=== PATIENT | female | born 1975 ===

== ENCOUNTER 2017-07-09 15:39 | Emergency (ER) | payer MEDICAID ==
[2017-07-09 15:40] VITALS: BMI 19.5
[2017-07-09 16:01] VITALS: O2SAT 98
[2017-07-09] MEDS ORDERED: DiphenhydrAMINE 50 mg/ml Inj IVP STA (16:33)
[2017-07-09] MEDS ORDERED: Sodium Chloride 0.9% 1,000 ML IV ONE (16:33)
[2017-07-09] MEDS ORDERED: DiphenhydrAMINE 50 mg/ml Inj ONE (16:44)
[2017-07-09] MEDS ORDERED: Sodium Chloride 0.9% 1,000 ML ONE (16:44)
[2017-07-09 16:53] LABS: BASO % 0.4 % (0.0-2.0); HEMATOCRIT 41.7 % (34.0-47.0); LYMPH # 1.7 K/uL (1.0-4.3); LYMPH % 14.7 % (20.0-40.0); MEAN CELL VOLUME 88.8 fL (81.0-99.0); MEAN CORPUSCULAR HEMOGLOBIN 29.4 pg (27.0-31.0); MEAN CORPUSCULAR HGB CONC 33.1 g/dL (33.0-37.0); MEAN PLATELET VOLUME 7.5 fL (7.2-11.7); MONO # 0.9 K/uL (0.0-0.8); MONO % 8.1 % (0.0-10.0); RED CELL DISTRIBUTION WIDTH 13.8 % (11.5-14.5); WHITE BLOOD COUNT 11.5 K/uL (4.8-10.8)
[2017-07-09 17:12] LABS: BILIRUBIN,TOTAL 1.3 mg/dL (0.2-1.3); CALCIUM 8.5 mg/dl (8.6-10.4); GFR AFRICAN-AMERICAN > 60; GLUCOSE,RANDOM 109 mg/dL (65-105); TOTAL PROTEIN 8.3 g/dL (6.3-8.3)
[2017-07-09 17:14] LABS: ALB/GLOB RATIO 1.1 (1.0-2.1); ALKALINE PHOSPHATASE 81 U/L (38-126); ALT/SGPT 26 U/L (9-52); AST/SGOT 29 U/L (14-36); BLOOD UREA NITROGEN 12 mg/dL (7-17); CARBON DIOXIDE 26 mmol/L (22-30); CHLORIDE 95 mmol/L (98-107); POTASSIUM 4.3 mmol/L (3.6-5.2); SODIUM 131 mmol/L (132-148)
--- NOTE | 2017-07-09 17:49 | C.PDOC ---
Time Seen by Provider: 07/09/17 16:25 Chief Complaint (Nursing): Abdominal Pain History Per: Patient Onset/Duration Of Symptoms: Days (4) Current Symptoms Are (Timing): Still Present Severity: Moderate Location Of Pain/Discomfort: Epigastric Radiation Of Pain To:: None Quality Of Discomfort: Unable To Describe, "Pain" Associated Symptoms: Nausea, Vomiting Exacerbating Factors: Food Alleviating Factors: None Additional History Per: Prior Records Past Medical History Reviewed: Historical Data, Nursing Documentation, Vital Signs Vital Signs: Last Vital Signs Temp 97.9 F 07/09/17 17:50 Pulse 64 07/09/17 17:50 Resp 18 07/09/17 17:50 BP 109/72 07/09/17 17:50 Pulse Ox 98 07/09/17 17:51 - Medical History PMH: Anxiety, Depression, Gastrointestinal Ulcer, Hypercholesterolemia, Migraine , Sleep Apnea Surgical History: Other Surgeries: Gastric bypass - [facility] Procedures BYPASS STOMACH TO JEJUNUM, PERCUTANEOUS ENDOSCOPIC APPROACH (04/28/15) DETOXIFICATION SERVICES FOR SUBSTANCE ABUSE TREATMENT (10/15/15) DILATION OF STOMACH, ENDO (06/23/15) DIVISION OF VAGUS NERVE, PERCUTANEOUS ENDOSCOPIC APPROACH (04/28/15) ESOPHAGOGASTRODUODENOSCOPY [EGD] W/CLOSED BIOPSY (02/12/15) EXCISION OF STOMACH, ENDO, DIAGN (07/19/15) IMMOBILIZ/WOUND ATTN NEC (02/17/15) INSERTION OF FEEDING DEVICE INTO JEJUNUM, PERC APPROACH (09/11/15) INSERTION OF INFUSION DEV INTO SUP VENA CAVA, PERC APPROACH (09/11/15) INSPECTION OF UPPER INTESTINAL TRACT, ENDO (02/05/16) INTRODUCTION OF NUTRITIONAL INTO CENTRAL VEIN, PERC APPROACH (09/11/15) MEDS [facility] FOR SUBSTANCE ABUSE TREATMENT, ANTABUSE (10/15/15) RELEASE LESSER OMENTUM, PERCUTANEOUS ENDOSCOPIC APPROACH (02/05/16) RELEASE SMALL INTESTINE, PERCUTANEOUS ENDOSCOPIC APPROACH (08/02/15) REMOVAL OF INTRALUMINAL DEVICE FROM ESOPHAGUS, ENDO (09/29/15) REPAIR ABDOMINAL WALL, PERCUTANEOUS ENDOSCOPIC APPROACH (02/05/16) REPAIR LEFT DIAPHRAGM, PERCUTANEOUS ENDOSCOPIC APPROACH (04/28/15) REPAIR RIGHT DIAPHRAGM, PERCUTANEOUS ENDOSCOPIC APPROACH (04/28/15) RESECTION OF GALLBLADDER, PERCUTANEOUS ENDOSCOPIC APPROACH (02/29/16) Family History: States: Unknown Family Hx - Social History Hx Tobacco Use: Yes (former smoker) Hx Alcohol Use: No Hx Substance Use: No - Immunization History Hx Tetanus Toxoid Vaccination: No Hx Influenza Vaccination: No Hx Pneumococcal Vaccination: No Review Of Systems Except As Marked, All Systems Reviewed And Found Negative. Constitutional: Negative for: Fever Cardiovascular: Negative for: Chest Pain Respiratory: Negative for: Shortness of Breath Gastrointestinal: Positive for: Nausea, Vomiting, Abdominal Pain. Negative for : Diarrhea, Melena, Hematochezia, Hematemesis Genitourinary: Negative for: Dysuria Musculoskeletal: Negative for: Neck Pain, Back Pain Skin: Negative for: Rash Neurological: Negative for: Weakness, Numbness, Headache Physical Exam - Physical Exam Appears: Non-toxic, No Acute Distress Skin: Normal Color, Warm, Dry, No Rash Head: Atraumatic, Normacephalic Eye(s): bilateral: Normal Inspection, PERRL, EOMI Oral Mucosa: Moist Neck: Normal ROM, Supple Cardiovascular: Rhythm Regular Respiratory: Normal Breath Sounds, No Accessory Muscle Use Gastrointestinal/Abdominal: Soft, Tenderness (epigastric), No Distention, No Guarding, No Rebound Back: No CVA Tenderness Extremity: Normal ROM Neurological/Psych: Oriented x3, Normal Motor, Normal Sensation ED Course And Treatment - Laboratory Results Result Diagrams: 07/09/17 16:47 07/09/17 16:47 Lab Interpretation: No Acute Changes O2 Sat by Pulse Oximetry: 98 Pulse Ox Interpretation: Normal Progress Note: Pt feels much better and wants to go home. Reassessment Condition: Improved Progress - Interventions Interventions:: Observation, Intravenous fluid - Medications Administered Intravenous: Antiemetic, Antihistamine (H-1), H-2 jeny - Data Reviewed Data Reviewed: Lab, Old records - Patient Status Patient status: Mostly improved - Continuity of Care Discussed patient case with:: Patient, ED Nurse - Patient Plan Patient Plan: Discharge, F/U with PCP Disposition Counseled Patient/Family Regarding: Studies Performed, Diagnosis, Need For Followup, Rx Given - Disposition Referrals: Darell Marti MD [Staff Provider] - Disposition: HOME/ ROUTINE Disposition Time: 18:02 Condition: IMPROVED Additional Instructions: Follow up with your doctor for further evaluation and treatment. Return to the ER if you develop fever, not tolerating fluids, bleeding, worsening of symptoms or if you have any other concerns. Prescriptions: Ondansetron [Zofran] 4 mg PO Q8H PRN #15 tab PRN Reason: Nausea/Vomiting Pantoprazole Sodium [Protonix] 40 mg PO DAILY #14 ect Instructions: Gastritis (ED) Forms: [employer] Connect (Slovenian) Print Language: TURKMEN - Clinical Impression Clinical Impression: Epigastric abdominal pain, Nausea & vomiting
[2017-07-09 17:52] VITALS: BP 109/72; PULSE 64; RESP 18; TEMP 97.9
== END 2017-07-09 18:30 | disposition home or self-care (01) ==
LOC: C.ER 15:39
DX: R11.2 Nausea with vomiting, unspecified (principal); R10.13 Epigastric pain
CPT/HCPCS: 80053; 83690; 85025; 96361; 96374; 96375; 99285; J1200; J2765; J7040

== ENCOUNTER 2017-07-10 21:40 | Inpatient (IN) | payer MEDICAID ==
[2017-07-10 21:40] VITALS: BMI 19.5
--- NOTE | 2017-07-10 22:07 | C.PDOC ---
History Of Present Illness Patient with a Hx of gastric bypass presents to the ER with a complaint of nausea, vomiting, and abdominal pain for the past 5 days. Patient has not been able to tolerate PO, she was seen in the ER yesterday where she had a negative work up and was discharged home on protonix and zofran but symptoms continue. Denies fever or chills. Time Seen by Provider: 07/10/17 22:06 Chief Complaint (Nursing): Abdominal Pain History Per: Patient History/Exam Limitations: no limitations Onset/Duration Of Symptoms: Days Current Symptoms Are (Timing): Still Present Severity: Moderate Pain Scale Rating Of: 4 Location Of Pain/Discomfort: Epigastric Radiation Of Pain To:: None Quality Of Discomfort: Unable To Describe Associated Symptoms: Nausea, Vomiting. denies: Fever, Chills Exacerbating Factors: None Alleviating Factors: None Recent travel outside of the [place]: No Additional History Per: Family Abnormal Vaginal Bleeding: No Past Medical History Reviewed: Historical Data, Nursing Documentation, Vital Signs Vital Signs: Last Vital Signs Temp 98.9 F 07/11/17 01:02 Pulse 63 07/11/17 01:02 Resp 16 07/11/17 01:02 BP 161/106 H 07/11/17 01:02 Pulse Ox 100 07/11/17 01:02 - Medical History PMH: Anxiety, Depression, Gastrointestinal Ulcer, Hypercholesterolemia, Migraine , Sleep Apnea Surgical History: - [facility] Procedures BYPASS STOMACH TO JEJUNUM, PERCUTANEOUS ENDOSCOPIC APPROACH (04/28/15) DETOXIFICATION SERVICES FOR SUBSTANCE ABUSE TREATMENT (10/15/15) DILATION OF STOMACH, ENDO (06/23/15) DIVISION OF VAGUS NERVE, PERCUTANEOUS ENDOSCOPIC APPROACH (04/28/15) ESOPHAGOGASTRODUODENOSCOPY [EGD] W/CLOSED BIOPSY (02/12/15) EXCISION OF STOMACH, ENDO, DIAGN (07/19/15) IMMOBILIZ/WOUND ATTN NEC (02/17/15) INSERTION OF FEEDING DEVICE INTO JEJUNUM, PERC APPROACH (09/11/15) INSERTION OF INFUSION DEV INTO SUP VENA CAVA, PERC APPROACH (09/11/15) INSPECTION OF UPPER INTESTINAL TRACT, ENDO (02/05/16) INTRODUCTION OF NUTRITIONAL INTO CENTRAL VEIN, PERC APPROACH (09/11/15) MEDS [facility] FOR SUBSTANCE ABUSE TREATMENT, ANTABUSE (10/15/15) RELEASE LESSER OMENTUM, PERCUTANEOUS ENDOSCOPIC APPROACH (02/05/16) RELEASE SMALL INTESTINE, PERCUTANEOUS ENDOSCOPIC APPROACH (08/02/15) REMOVAL OF INTRALUMINAL DEVICE FROM ESOPHAGUS, ENDO (09/29/15) REPAIR ABDOMINAL WALL, PERCUTANEOUS ENDOSCOPIC APPROACH (02/05/16) REPAIR LEFT DIAPHRAGM, PERCUTANEOUS ENDOSCOPIC APPROACH (04/28/15) REPAIR RIGHT DIAPHRAGM, PERCUTANEOUS ENDOSCOPIC APPROACH (04/28/15) RESECTION OF GALLBLADDER, PERCUTANEOUS ENDOSCOPIC APPROACH (02/29/16) Family History: States: No Known Family Hx - Social History Hx Tobacco Use: Yes (former smoker) Hx Alcohol Use: No Hx Substance Use: No - Immunization History Hx Tetanus Toxoid Vaccination: No Hx Influenza Vaccination: No Hx Pneumococcal Vaccination: No Review Of Systems Constitutional: Negative for: Fever, Chills ENT: Negative for: Throat Pain Cardiovascular: Negative for: Chest Pain Respiratory: Negative for: Shortness of Breath Gastrointestinal: Positive for: Nausea, Vomiting, Abdominal Pain Genitourinary: Negative for: Dysuria Musculoskeletal: Negative for: Back Pain Skin: Negative for: Rash Neurological: Negative for: Weakness Psych: Negative for: Anxiety Physical Exam - Physical Exam Appears: Non-toxic Skin: Warm, Dry Head: Normacephalic Eye(s): bilateral: Normal Inspection Oral Mucosa: Dry Neck: Supple Chest: Symmetrical, No Tenderness Cardiovascular: Rhythm Regular Respiratory: No Rales, No Rhonchi, No Wheezing Gastrointestinal/Abdominal: Soft, Tenderness (Mid epigastric), No Guarding, No Rebound Back: Normal Inspection Extremity: Normal ROM Extremity: Bilateral: Atraumatic, Normal Color And Temperature Pulses: Left Dorsalis Pedis: Normal, Right Dorsalis Pedis: Normal Neurological/Psych: Oriented x3, Normal Speech, Normal Cognition Gait: Steady ED Course And Treatment - Laboratory Results Result Diagrams: 07/10/17 22:16 07/10/17 22:16 O2 Sat by Pulse Oximetry: 100 (Room air) Pulse Ox Interpretation: Normal Progress Note: CT abd/pel, blood work, and urinalysis ordered. IV fluids, pepcid , and zofran administered. Disposition Discussed With : Darell Marti Comment: accepted the pt on his service and took over the care at 1:14 AM Counseled Patient/Family Regarding: Studies Performed, Diagnosis - Disposition Disposition: HOSPITALIZED Disposition Time: 22:07 Condition: GUARDED Forms: [employer] (German) - Clinical Impression Clinical Impression: Nausea, Vomiting, Abdominal pain - Scribe Statement The provider has reviewed the documentation as recorded by the Scribe Jayden Robles All medical record entries made by the Scribe were at my direction and personally dictated by me. I have reviewed the chart and agree that the record accurately reflects my personal performance of the history, physical exam, medical decision making, and the department course for this patient. I have also personally directed, reviewed, and agree with the discharge instructions and disposition. Decision To Admit - Pt Status Changed To: Hospital Disposition Of: Inpatient - Admit Certification Admit to Inpatient:: After my assessment, the patient will require hospitalization for at least two midnights. This is because of the severity of symptoms shown, intensity of services needed, and/or the medical risk in this patient being treated as an outpatient. - InPatient: Physician Admission Certification:: After my assessment, the patient will require hospitalization for at least two midnights. This is because of the severity of symptoms shown, intensity of services needed, and/or the medical risk in this patient being treated as an outpatient. - . Bed Request Type: Regular Admitting Physician: Darell Marti Patient Diagnosis: Nausea, Vomiting, Abdominal pain
[2017-07-10] MEDS ORDERED: Lactated Ringer's 1,000 ML IV ONE (22:08)
[2017-07-10] MEDS ORDERED: Lactated Ringer's 1,000 ML ONE (22:18)
[2017-07-10 22:19] LABS: BASO % 0.2 % (0.0-2.0); HEMOGLOBIN 15.2 g/dL (11.0-16.0); LYMPH # 0.7 K/uL (1.0-4.3); LYMPH % 9.4 % (20.0-40.0); MEAN CELL VOLUME 88.8 fL (81.0-99.0); MEAN CORPUSCULAR HEMOGLOBIN 30.7 pg (27.0-31.0); MEAN CORPUSCULAR HGB CONC 34.5 g/dL (33.0-37.0); MEAN PLATELET VOLUME 7.5 fL (7.2-11.7); MONO # 0.2 K/uL (0.0-0.8); MONO % 2.2 % (0.0-10.0); NEUT % 88.2 % (50.0-75.0); PLATELET COUNT 369 K/uL (130-400); RBC 4.96 Mil/uL (3.80-5.20); RED CELL DISTRIBUTION WIDTH 13.9 % (11.5-14.5); WHITE BLOOD COUNT 7.9 K/uL (4.8-10.8)
[2017-07-10] MEDS ORDERED: DiphenhydrAMINE 50 mg/ml Inj IVP STA (22:35)
[2017-07-10 22:38] LABS: HCG,QUALITATIVE URINE NEGATIVE (NEGATIVE); SQUAMOUS EPITHIAL 36 /hpf (0-5); URINE BACTERIA OCC (<OCC); URINE BILIRUBIN NEGATIVE (NEGATIVE); URINE BLOOD NEGATIVE (NEGATIVE); URINE CLARITY Hazy (Clear); URINE COLOR Yellow (YELLOW); URINE GLUCOSE (UA) 1+ mg/dL (Normal); URINE LEUKOCYTE ESTERASE NEG Leu/uL (Negative); URINE NITRATE NEGATIVE (NEGATIVE); URINE PROTEIN 1+ mg/dL (NEGATIVE)
[2017-07-10] MEDS ORDERED: DiphenhydrAMINE 50 mg/ml Inj ONE (22:39)
[2017-07-10 22:42] LABS: ALBUMIN 4.7 g/dL (3.5-5.0); ALT/SGPT 21 U/L (9-52); AST/SGOT 25 U/L (14-36); BLOOD UREA NITROGEN 11 mg/dL (7-17); CALCIUM 8.7 mg/dl (8.6-10.4); GFR AFRICAN-AMERICAN > 60; GFR NON-AFRICAN AMERICAN > 60; LIPASE 36 U/L (23-300)
[2017-07-10 22:54] LABS: LYMPHOCYTE 9 % (20-40); MONOCYTE 1 % (0-10); NEUTROPHIL 89 % (50-75); PLATELET ESTIMATE NORMAL (NORMAL); REACTIVE LYMPHOCYTES 1 % (0-0); TOTAL CELLS COUNTED 100
[2017-07-10] MEDS ORDERED: Iodixanol 320 MG/ML 100 ML BOTTLE IV ONE (23:05)
[2017-07-11] MEDS ORDERED: Dextrose 5%/0.45% NS 1,000 ML IV ONE (01:37)
[2017-07-11] MEDS: Dextrose 5%/0.45% NS 1,000 ML IV SCH ×3 (01:37→22:41)
[2017-07-11 01:49] LABS: BARBITURATES, UR NEGATIVE (NEGATIVE); BENZODIAZEPINES, UR NEGATIVE (NEGATIVE); OPIATES, UR NEGATIVE (NEGATIVE); PHENCYCLIDINE, UR NEGATIVE (NEGATIVE)
[2017-07-11 08:03] LABS: AMYLASE 53 U/L (30-110); LIPASE 24 U/L (23-300)
--- NOTE | 2017-07-11 10:46 | CT ---
PROCEDURE: CT Abdomen and Pelvis with contrast HISTORY: abd pain, n/v COMPARISON: None. TECHNIQUE: Contrast dose: Visipaque 320, 100 cc. Radiation dose: Total exam DLP = 479.60 mGy-cm. This CT exam was performed using one or more of the following dose reduction techniques: Automated exposure control, adjustment of the mA and/or kV according to patient size, and/or use of iterative reconstruction technique. FINDINGS: LOWER THORAX: Unremarkable. LIVER: Unremarkable. No gross lesion or ductal dilatation. GALLBLADDER AND BILE DUCTS: Prior cholecystectomy noted. Common bile duct appears normal caliber nevertheless. No prominent intrahepatic biliary duct dilatation. PANCREAS: Unremarkable. No gross lesion or ductal dilatation. SPLEEN: Unremarkable. ADRENALS: Unremarkable. No mass. KIDNEYS AND URETERS: Unremarkable. No hydronephrosis. No solid mass. VASCULATURE: Unremarkable. No aortic aneurysm. BOWEL: Bowel does not appear obstructed. Evaluation the stomach reveals postoperative changes most compatible with prior gastric bypass surgery once again, as well as findings in the inferior left-sided small-bowel. Mural thickening of the stomach appears to have resolved in the interval. This APPENDIX: Normal appendix. PERITONEUM: Unremarkable. No free fluid. No free air. LYMPH NODES: Unremarkable. No enlarged lymph nodes. BLADDER: Unremarkable. REPRODUCTIVE: 2.4 cm right adnexal cyst identified in the interval. BONES: No acute fracture. OTHER FINDINGS: None. IMPRESSION: 1. Postoperative changes compatible with prior gastric bypass surgery as well as cholecystectomy. No definite acute abdominal findings. 2. Prior cholecystectomy. 3. 2.4 cm right adnexal cyst.
--- NOTE | 2017-07-11 15:04 | CP.PCM.PN ---
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 PT IS NO LONGER IN PAIN OR HAS NAUSEA. ABD CT REVIEWED. PENDING GI CONSULT STILL; RN INSTRUCTED TO CALL AGAIN. PT TO BE STARTED ON CLEAR LIQUIDS TONIGHT FOR DINNER. IF PT DOES NOT TOLERATE, RN TO NOTIFY ATTENDING AND PLACE ON NPO STATUS AGAIN. NO FURTHER ORDERS. Objective - Vital Signs/Intake and Output Vital Signs (last 24 hours): Temp Pulse Resp BP Pulse Ox 97.8 F 57 L 18 97/59 L 98 07/11/17 07:30 07/11/17 07:30 07/11/17 07:30 07/11/17 10:00 07/11/17 07:30 Intake and Output: 07/11/17 07/11/17 06:59 18:59 Intake Total 620 Balance 620 - Medications Medications: Current Medications Famotidine (Pepcid) 20 mg IVP Q12 [facility] Last Admin: 07/11/17 10:10 Dose: 20 mg Heparin Sodium (Porcine) (Heparin) 5,000 units SC Q8 [facility] Last Admin: 07/11/17 13:53 Dose: Not Given Dextrose/Sodium Chloride (Dextrose 5%/0.45% Ns 1000 Ml) 1,000 mls @ 100 mls/hr IV .Q10H [facility] Last Admin: 07/11/17 11:45 Dose: 100 mls/hr Morphine Sulfate (Morphine) 2 mg IVP Q4 PRN PRN Reason: Pain, moderate (4-7) Last Admin: 07/11/17 10:38 Dose: 2 mg Ondansetron HCl (Zofran Inj) 4 mg IVP Q4 PRN PRN Reason: Nausea/Vomiting Last Admin: 07/11/17 10:39 Dose: 4 mg Pneumococcal Polyvalent Vaccine (Pneumovax 23 Vaccine) 0.5 ml IM .ONCE ONE Stop: 07/14/17 14:01 - Labs Labs: 07/10/17 22:16 07/10/17 22:16
--- NOTE | 2017-07-11 23:07 | CP.PCM.HP ---
History of Present Illness - History of Present Illness History of Present Illness: CC: persistant nausea/vomitting HPI: Patient is a young female well known to me with a Hx of gastric bypass , biatric surgey and mltiple side effects of the procedure presents to the ER with a complaint of nausea, vomiting, and abdominal pain for the past 5 days. Patient has not been able to tolerate PO, she was seen in the ER yesterday where she had a negative work up and was discharged home on protonix and zofran but symptoms continue. Denies fever or chills.vomitting consisites of food contenets and associated with retching Present on Admission - Present on Admission Any Indicators Present on Admission: Yes Review of Systems - Review of Systems Systems not reviewed;Unavailable: Acuity of Condition - Constitutional Constitutional: Fatigue, Lethargy, Malaise, Weight Loss - EENT Eyes: absent: As Per HPI, Blind Spots, Blurred Vision, Change in Vision, Decreased Night Vision, Diplopia, Discharge, Dry Eye, Exophthalmos, Floaters, Irritation, Itchy Eyes, Loss of Peripheral Vision, Pain, Photophobia, Requires Corrective Lenses, Sees Flashes, Spots in Vision, Tunnel Vision, Other Visual Disturbances, Loss of Vision, Other Ears: absent: As Per HPI, Decreased Hearing, Ear Discharge, Ear Pain, Tinnitus, Abnormal Hearing, Disequilibrium, Dizziness, Other Nose/Mouth/Throat: absent: As Per HPI, Epistaxis, Nasal Congestion, Nasal Discharge, Nasal Obstruction, Nasal Trauma, Nose Pain, Post Nasal Drip, Sinus Pain, Sinus Pressure, Bleeding Gums, Change in Voice, Dental Pain, Dry Mouth, Dysphagia, Halitosis, Hoarsness, Lip Swelling, Mouth Lesions, Mouth Pain, Odynophagia, Sore Throat, Throat Swelling, Tongue Swelling, Facial Pain, Neck Pain, Neck Mass, Other - Breasts Breasts: absent: As Per HPI, Change in Shape, Mass, Pain, Nipple Discharge, Nipple Inversion, Skin Changes, Swelling, Other - Cardiovascular Cardiovascular: absent: As Per HPI, Acrocyanosis, Chest Pain, Chest Pain at Rest , Chest Pain with Activity, Claudication, Diaphoresis, Dyspnea, Dyspnea on Exertion, Edema, Irregular Heart Rhythm, Pain Radiating to Arm/Neck/Jaw, Leg Edema, Leg Ulcers, Lightheadedness, Orthopnea, Palpitations, Paroxysmal Nocturnal Dyspnea, Pedal Edema, Radiating Pain, Rapid Heart Rate, Slow Heart Rate, Syncope, Other - Respiratory Respiratory: absent: As Per HPI, Cough, Dyspnea, Hemoptysis, Dyspnea on Exertion , Wheezing, Snoring, Stridor, Pain on Inspiration, Chest Congestion, Excessive Mucous Production, Change in Mucous Color, Pain with Coughing, Other - Gastrointestinal Gastrointestinal: Abdominal Pain, Dyspepsia, Nausea, Vomiting - Neurological Neurological: absent: As Per HPI, Abnormal Gait, Abnormal Hearing, Abnormal Movements, Abnormal Speech, Behavioral Changes, Burning Sensations, Confusion, Convulsions, Disequilibrium, Dizziness, Numbness, Focal Weakness, Frequent Falls , Headaches, Lack of Coordination, Loss of Vision, Memory Loss, Paresthesias, Radicular Pain, Restless Legs, Sensory Deficit, Syncope, Tingling, Tremor, Vertigo, Weakness, Other Visual Disturbances, Other - Psychiatric Psychiatric: Anxiety. absent: As Per HPI, Abnormal Sleep Pattern, Anhedonia, Auditory Hallucinations, Behavioral Changes, Change in Appetite, Change in Libido, Confusion, Depression, Difficulty Concentrating, Hallucinations, Homicidal Ideation, Hopelessness, Irritability, Memory Loss, Mood Swings, Panic Attacks, Paranoia, Suicidal Ideation, Visual Hallucinations, Tactile Hallucinations, Other Past Patient History - Infectious Disease Hx of Infectious Diseases: None - Tetanus Immunizations Tetanus Immunization: Unknown - Past Medical History & Family History Past Medical History?: Yes - Past Social History Smoking Status: Never Smoked - CARDIAC Hx Cardiac Disorders: Yes Hx Hypercholesterolemia: Yes - PULMONARY Hx Respiratory Disorders: Yes Hx Sleep Apnea: Yes - NEUROLOGICAL Hx Neurological Disorder: Yes Hx Migraine: Yes - HEENT Hx HEENT Problems: Yes Hx Blind: (reading glasses) - RENAL Hx Chronic Kidney Disease: No - ENDOCRINE/METABOLIC Hx Endocrine Disorders: No - HEMATOLOGICAL/ONCOLOGICAL Hx Blood Disorders: No - INTEGUMENTARY Hx Dermatological Problems: No - MUSCULOSKELETAL/RHEUMATOLOGICAL Hx Musculoskeletal Disorders: No Hx Falls: No - GASTROINTESTINAL Hx Gastrointestinal Disorders: Yes Other/Comment: HX GASTRIC BYPASS APR 2015 - GENITOURINARY/GYNECOLOGICAL Hx Genitourinary Disorders: No Hx Sexually Transmitted Disorders: No - PSYCHIATRIC Hx Psychophysiologic Disorder: Yes Hx Anxiety: Yes Hx Depression: Yes Hx Substance Use: No - SURGICAL HISTORY Hx Surgeries: Yes Hx Gastric Bypass Surgery: Yes (2014) Hx Hysterectomy: Yes Other/Comment: left breast cyst removal-2011 - ANESTHESIA Hx Anesthesia: Yes Hx Anesthesia Reactions: No Hx Malignant Hyperthermia: No Meds Allergies/Adverse Reactions: Allergies Allergy/AdvReac Type Severity Reaction Status Date / Time No Known Allergies Allergy Verified 07/10/17 21:45 Physical Exam - Constitutional Appears: No Acute Distress - Head Exam Head Exam: ATRAUMATIC, NORMAL INSPECTION, NORMOCEPHALIC - Eye Exam Eye Exam: EOMI, Normal appearance, PERRL Pupil Exam: NORMAL ACCOMODATION, PERRL - Respiratory Exam Respiratory Exam: Clear to Auscultation Bilateral, NORMAL BREATHING PATTERN - Cardiovascular Exam Cardiovascular Exam: REGULAR RHYTHM - GI/Abdominal Exam GI & Abdominal Exam: Normal Bowel Sounds, Soft. absent: Tenderness Results - Vital Signs Recent Vital Signs: Last Vital Signs Temp 98.2 F 07/11/17 15:06 Pulse 60 07/11/17 15:06 Resp 18 07/11/17 15:06 BP 95/60 L 07/11/17 15:06 Pulse Ox 96 07/11/17 15:06 - Labs Result Diagrams: 07/10/17 22:16 07/10/17 22:16 Labs: Laboratory Results - last 24 hr 07/11/17 07/11/17 01:29 06:17 Amylase 53 Lipase 24 Urine Opiates Screen Negative Urine Methadone Screen Negative Ur Barbiturates Screen Negative Ur Phencyclidine Scrn Negative Ur Amphetamines Screen Negative U Benzodiazepines Scrn Negative U Oth Cocaine Metabols Negative U Cannabinoids Screen Negative Assessment & Plan (1) Other complications of other bariatric procedure Status: Acute (2) Abdominal pain Status: Acute (3) Nausea Status: Acute (4) Vomiting Status: Acute
[2017-07-12] MEDS: Dextrose 5%/0.45% NS 1,000 ML IV SCH ×2 (07:43→18:05)
--- NOTE | 2017-07-12 20:03 | CON ---
DATE: HISTORY OF PRESENT ILLNESS: This is a 41-year-old female seen and examined today for GI consultation. The entire chart is reviewed including but not limited to the most recent labs and radiology study results, current and previous medication list, current and previous medical events. Patient is post gastric bypass surgery, was admitted with severe abdominal pain, recurrent nausea and vomiting persistent. CAT scan of the abdomen and pelvis done indicative of postoperative changes with prior gastric bypass surgery as well as cholecystectomy with 2.5-cm adrenal cyst. Today's lab is still pending, but the patient has normal CBC with elevated blood glucose level, total bilirubin. PHYSICAL EXAMINATION: GENERAL: A 41-year-old female. VITAL SIGNS: Afebrile with pulse of 56, respiratory rate 20 to 22 with blood pressure of 114/68. HEENT: Within normal limit. LUNGS: Clear. Breathing sounds are present bilaterally. HEART: Positive S1 and S2. ABDOMEN: Soft. Bowel sounds are present with diffuse severe abdominal pain and tenderness. No mass or organomegaly. No rebound tenderness or guarding. RECTAL: Patient refused. EXTREMITIES: Without significant clubbing, cyanosis, or edema. NEUROLOGIC: No new reported neurological deficits, sensory or motor. IMPRESSION: 1. Exacerbation of peptic ulcer disease with recurrent nausea and vomiting. To rule out possible marginal gastric ulcer post gastric bypass surgery. 2. Known history of hyperlipidemia, migraine headaches, sleep apnea, and severe anxiety syndrome with depression. 3. Status post cholecystectomy. SUGGESTIONS: 1. Agree with your plan. 2. Due to the patient's severe abdominal pain with persistent nausea and vomiting even during my physical examination, upper endoscopy to be scheduled at a.m. 3. Reglan IV. 4. Further recommendations to follow. Obed Herrera MD
--- NOTE | 2017-07-12 23:25 | CP.PCM.PN ---
Subjective - Date & Time of Evaluation Date of Evaluation: 07/12/17 Time of Evaluation: 21:00 - Subjective Subjective: Pt seen and examined at bedside, c/o nausea, vomitting and abdominal pain, s/p gastric by pass, pt is for endoscopy tommorow Objective - Vital Signs/Intake and Output Vital Signs (last 24 hours): Temp Pulse Resp BP Pulse Ox 98.3 F 60 18 165/103 H 100 07/12/17 15:19 07/12/17 15:19 07/12/17 15:19 07/12/17 17:35 07/12/17 15:19 - Medications Medications: Current Medications Famotidine (Pepcid) 20 mg IVP Q12 [facility] Last Admin: 07/12/17 21:39 Dose: 20 mg Heparin Sodium (Porcine) (Heparin) 5,000 units SC Q8 [facility] Last Admin: 07/12/17 21:41 Dose: Not Given Hydromorphone HCl (Dilaudid) 1 mg IVP Q4H PRN PRN Reason: Pain, severe (8-10) Dextrose/Sodium Chloride (Dextrose 5%/0.45% Ns 1000 Ml) 1,000 mls @ 100 mls/hr IV .Q10H [facility] Last Admin: 07/12/17 18:05 Dose: 100 mls/hr Metoclopramide HCl (Reglan) 10 mg IVP Q6H [facility] Last Admin: 07/12/17 23:06 Dose: Not Given Ondansetron HCl (Zofran Inj) 4 mg IVP Q4 PRN PRN Reason: Nausea/Vomiting Last Admin: 07/12/17 18:04 Dose: 4 mg Pneumococcal Polyvalent Vaccine (Pneumovax 23 Vaccine) 0.5 ml IM .ONCE ONE Stop: 07/14/17 14:01 - Labs Labs: 07/10/17 22:16 07/10/17 22:16 - Constitutional Appears: No Acute Distress - Head Exam Head Exam: ATRAUMATIC, NORMAL INSPECTION, NORMOCEPHALIC - Eye Exam Eye Exam: EOMI, Normal appearance, PERRL Pupil Exam: NORMAL ACCOMODATION, PERRL - Respiratory Exam Respiratory Exam: Clear to Ausculation Bilateral, NORMAL BREATHING PATTERN - Cardiovascular Exam Cardiovascular Exam: REGULAR RHYTHM, +S1, +S2. absent: Murmur - GI/Abdominal Exam GI & Abdominal Exam: Soft, Normal Bowel Sounds. absent: Tenderness Assessment and Plan (1) Other complications of other bariatric procedure Status: Acute (2) Abdominal pain Assessment & Plan: for endoscopy tommorow monitor electrolytes pain meds antiemetics Status: Acute (3) Nausea Status: Acute (4) Vomiting Status: Acute
[2017-07-13] MEDS: Dextrose 5%/0.45% NS 1,000 ML IV SCH ×5 (01:38→23:58)
[2017-07-13] MEDS ORDERED: Propofol 10 mg/ml Inj (20 ML) ONE (08:54)
[2017-07-13] MEDS ORDERED: Lactated Ringer's 1,000 ML IV ONE (08:55)
--- NOTE | 2017-07-13 13:27 | CP.PCM.CON ---
History of Present Illness - History of Present Illness History of Present Illness: General Surgery Consult: Dr Hernandez Re: abdominal pain w/ N/V Pt is a 40F with history of morbid obesity (s/p Klever-en-Y gastrojejunostomy w/ Dr Andino 04/30) complicated by anastomotic strictures (s/p multiple dilitations w/ Dr Graves), gastro-gastric fistula (s/p WalFlex covered stent) and multiple marginal ulcers ( s/p PEJ placement in 09/29), Goss's hernia ( repaired in 09/29) and cholecystectomy w/ Dr Garcia. Since 2015 pt reports she has been doing well. No further abdominal pain. Has been weened off all narcotics. Pt reports she is back up to 155 and feeling very healthy. Pt came to ED on 07/11 with epigastric pain accompanied by nausea and vomiting, non-billous and non-bloody. Pt was taken for EGD and found to have a gastric ulcer in the body of the stomach proximal to the gastro- jejunal anastomosis. Per report there is no ulcer on the suture line itself, nor an ulcer noted below the line in the jejunum. Currently pt states her pain is resolved. She is tolerating liquids. She has not vomited since the ED. Passing flatus and having BMs. Pt reports she has not been taking any PPIs. Pt denies NSAID use or spicy foods, but does admit to excessive coffee use. Review of Systems - Review of Systems All systems: reviewed and no additional remarkable complaints except (as per hpi ) Past Patient History - Infectious Disease Hx of Infectious Diseases: None - Tetanus Immunizations Tetanus Immunization: Unknown - Past Medical History & Family History Past Medical History?: Yes - Past Social History Smoking Status: Never Smoked - CARDIAC Hx Cardiac Disorders: Yes Hx Hypercholesterolemia: Yes - PULMONARY Hx Respiratory Disorders: Yes Hx Sleep Apnea: Yes - NEUROLOGICAL Hx Neurological Disorder: Yes Hx Migraine: Yes - HEENT Hx HEENT Problems: Yes Hx Blind: (reading glasses) - RENAL Hx Chronic Kidney Disease: No - ENDOCRINE/METABOLIC Hx Endocrine Disorders: No - HEMATOLOGICAL/ONCOLOGICAL Hx Blood Disorders: No - INTEGUMENTARY Hx Dermatological Problems: No - MUSCULOSKELETAL/RHEUMATOLOGICAL Hx Musculoskeletal Disorders: No Hx Falls: No - GASTROINTESTINAL Hx Gastrointestinal Disorders: Yes Other/Comment: HX GASTRIC BYPASS APR 2015 - GENITOURINARY/GYNECOLOGICAL Hx Genitourinary Disorders: No Hx Sexually Transmitted Disorders: No - PSYCHIATRIC Hx Psychophysiologic Disorder: Yes Hx Anxiety: Yes Hx Depression: Yes Hx Substance Use: No - SURGICAL HISTORY Hx Surgeries: Yes Hx Gastric Bypass Surgery: Yes (2014) Hx Hysterectomy: Yes Other/Comment: left breast cyst removal-2012 - ANESTHESIA Hx Anesthesia: Yes Hx Anesthesia Reactions: No Hx Malignant Hyperthermia: No Meds Allergies/Adverse Reactions: Allergies Allergy/AdvReac Type Severity Reaction Status Date / Time No Known Allergies Allergy Verified 07/10/17 21:45 - Medications Medications: Current Medications Famotidine (Pepcid) 20 mg IVP Q12 [facility] Last Admin: 07/13/17 12:04 Dose: 20 mg Heparin Sodium (Porcine) (Heparin) 5,000 units SC Q8 [facility] Last Admin: 07/13/17 13:12 Dose: Not Given Hydromorphone HCl (Dilaudid) 1 mg IVP Q4H PRN PRN Reason: Pain, severe (8-10) Last Admin: 07/13/17 11:26 Dose: 1 mg Dextrose/Sodium Chloride (Dextrose 5%/0.45% Ns 1000 Ml) 1,000 mls @ 100 mls/hr IV .Q10H [facility] Last Admin: 07/13/17 05:08 Dose: Not Given Metoclopramide HCl (Reglan) 10 mg IVP Q6H [facility] Last Admin: 07/13/17 11:45 Dose: Not Given Ondansetron HCl (Zofran Inj) 4 mg IVP Q4 PRN PRN Reason: Nausea/Vomiting Last Admin: 07/13/17 05:41 Dose: 4 mg Pneumococcal Polyvalent Vaccine (Pneumovax 23 Vaccine) 0.5 ml IM .ONCE ONE Stop: 07/14/17 14:01 Sucralfate (Carafate Oral Susp) 1 gm PO ACBHS [facility] Physical Exam - Constitutional Appears: Non-toxic, No Acute Distress - Head Exam Head Exam: NORMAL INSPECTION - Eye Exam Eye Exam: Normal appearance - ENT Exam ENT Exam: Mucous Membranes Moist - Respiratory Exam Respiratory Exam: absent: Accessory Muscle Use, Respiratory Distress - Cardiovascular Exam Cardiovascular Exam: REGULAR RHYTHM. absent: Tachycardia - GI/Abdominal Exam GI & Abdominal Exam: Soft, Tenderness (epigastric but pt states improved). absent: Distended, Firm, Guarding, Hernia, Rigid - Extremities Exam Extremities exam: Negative for: pedal edema - Neurological Exam Neurological exam: Alert, Oriented x3 - Psychiatric Exam Psychiatric exam: Normal Affect, Normal Mood Results - Vital Signs Recent Vital Signs: Last Vital Signs Temp 98.9 F 07/13/17 09:44 Pulse 73 07/13/17 11:26 Resp 16 07/13/17 11:26 BP 112/80 07/13/17 11:26 Pulse Ox 100 07/13/17 09:44 - Labs Result Diagrams: 07/10/17 22:16 07/10/17 22:16 Labs: Laboratory Results - last 24 hr 07/13/17 07:47 Urine HCG, Qual Negative Assessment & Plan - Assessment and Plan (Free Text) Assessment: 41F history of Klever-en-Y now presents with recurrence of gastric ulcers Plan: EGD demonstrates gastric/marginal ulcers pt was asymptomatic for quite some time and this is presumably a new occurrence as opposed to failure of original medical therapy recommend PPI and Sucralfate for 3-6 months (possibly for life given multiple episodes) w/ f/u with GI team if pt fails medical management would recommend f/u with bariatric specialist for anastomotic revision no immediate surgical intervention planned currently adv diet as per GI d/w Dr Mary Meza, PGY3 - Date & Time Date: 07/13/17 Time: 13:35
--- NOTE | 2017-07-13 19:38 | CP.PCM.PN ---
Subjective - Date & Time of Evaluation Date of Evaluation: 07/13/17 Time of Evaluation: 19:00 - Subjective Subjective: Pt seen and examined at bedside, Currently pt states her pain is resolved. She is tolerating liquids. She has not vomited since the ED. Passing flatus and having BMs. Objective - Vital Signs/Intake and Output Vital Signs (last 24 hours): Temp Pulse Resp BP Pulse Ox 97.5 F L 59 L 18 105/68 98 07/13/17 15:25 07/13/17 15:25 07/13/17 15:25 07/13/17 15:25 07/13/17 15:25 Intake and Output: 07/13/17 07/14/17 18:59 06:59 Intake Total 600 Balance 600 - Medications Medications: Current Medications Heparin Sodium (Porcine) (Heparin) 5,000 units SC Q8 [facility] Last Admin: 07/13/17 13:12 Dose: Not Given Hydromorphone HCl (Dilaudid) 1 mg IVP Q4H PRN PRN Reason: Pain, severe (8-10) Last Admin: 07/13/17 15:49 Dose: 1 mg Dextrose/Sodium Chloride (Dextrose 5%/0.45% Ns 1000 Ml) 1,000 mls @ 100 mls/hr IV .Q10H [facility] Last Admin: 07/13/17 15:53 Dose: 100 mls/hr Metoclopramide HCl (Reglan) 10 mg IVP Q6H [facility] Last Admin: 07/13/17 17:52 Dose: Not Given Ondansetron HCl (Zofran Inj) 4 mg IVP Q4 PRN PRN Reason: Nausea/Vomiting Last Admin: 07/13/17 05:41 Dose: 4 mg Pantoprazole Sodium (Protonix Inj) 40 mg IVP Q12H [facility] Last Admin: 07/13/17 14:44 Dose: 40 mg Pneumococcal Polyvalent Vaccine (Pneumovax 23 Vaccine) 0.5 ml IM .ONCE ONE Stop: 07/14/17 14:01 Sucralfate (Carafate Oral Susp) 1 gm PO ACBHS [facility] - Labs Labs: 07/10/17 22:16 07/10/17 22:16 - Constitutional Appears: No Acute Distress - Head Exam Head Exam: ATRAUMATIC, NORMAL INSPECTION, NORMOCEPHALIC - Eye Exam Eye Exam: EOMI, Normal appearance, PERRL Pupil Exam: NORMAL ACCOMODATION, PERRL - Cardiovascular Exam Cardiovascular Exam: REGULAR RHYTHM, +S1, +S2. absent: Murmur - GI/Abdominal Exam GI & Abdominal Exam: Tenderness Additional comments: epigastric tenderness - Neurological Exam Neurological Exam: Alert, Awake, CN II-XII Intact, Normal Gait, Oriented x3 - Psychiatric Exam Psychiatric exam: Normal Affect, Normal Mood Assessment and Plan (1) Other complications of other bariatric procedure Status: Acute (2) Abdominal pain Status: Acute (3) Nausea Status: Acute (4) Vomiting Status: Acute
[2017-07-13] MEDS: Sucralfate 1 gm/10 ml Oral Susp UD PO SCH (22:03)
[2017-07-14] MEDS: Sucralfate 1 gm/10 ml Oral Susp UD PO SCH ×2 (06:30→21:40)
[2017-07-14 08:01] LABS: BASO % 0.2 % (0.0-2.0); EOS % 0.1 % (0.0-4.0); HEMOGLOBIN 14.2 g/dL (11.0-16.0); LYMPH # 1.3 K/uL (1.0-4.3); LYMPH % 13.9 % (20.0-40.0); MEAN CELL VOLUME 86.9 fL (81.0-99.0); MEAN CORPUSCULAR HEMOGLOBIN 30.1 pg (27.0-31.0); MEAN CORPUSCULAR HGB CONC 34.7 g/dL (33.0-37.0); MEAN PLATELET VOLUME 8.1 fL (7.2-11.7); MONO # 0.4 K/uL (0.0-0.8); MONO % 3.9 % (0.0-10.0); NEUT # 7.5 K/uL (1.8-7.0); NEUT % 81.9 % (50.0-75.0); RBC 4.72 Mil/uL (3.80-5.20); RED CELL DISTRIBUTION WIDTH 13.7 % (11.5-14.5); WHITE BLOOD COUNT 9.2 K/uL (4.8-10.8)
[2017-07-14 08:14] LABS: BLOOD UREA NITROGEN 4 mg/dL (7-17); CALCIUM 7.9 mg/dl (8.6-10.4); GFR AFRICAN-AMERICAN > 60; GFR NON-AFRICAN AMERICAN > 60
--- NOTE | 2017-07-14 08:59 | CP.PCM.PN ---
Subjective - Date & Time of Evaluation Date of Evaluation: 07/14/17 Time of Evaluation: 08:56 - Subjective Subjective: Gen Sx: Dr Hernandez Pt S&E. Reports one episode of nausea overnight, claims to have vomited but minimal saliva in container. States epigastric pain has resolved. Not being controlled with dilaudid. Pt requesting stronger pain medication. Plan for GI series today Objective - Vital Signs/Intake and Output Vital Signs (last 24 hours): Temp Pulse Resp BP Pulse Ox 99.2 F 76 20 168/111 H 99 07/14/17 08:27 07/14/17 08:27 07/14/17 08:27 07/14/17 08:27 07/14/17 08:27 Intake and Output: 07/14/17 07/14/17 06:59 18:59 Intake Total 800 Output Total 10 Balance 790 - Medications Medications: Current Medications Famotidine (Pepcid) 20 mg IVP DAILY [facility] Heparin Sodium (Porcine) (Heparin) 5,000 units SC Q8 [facility] Last Admin: 07/14/17 05:14 Dose: Not Given Hydromorphone HCl (Dilaudid) 1 mg IVP Q4H PRN PRN Reason: Pain, severe (8-10) Last Admin: 07/14/17 08:09 Dose: 1 mg Potassium Chloride (Potassium Chloride 20 Meq/100 Ml) 20 meq in 100 mls @ 50 mls/hr IVPB Q2 [facility] Stop: 07/14/17 13:59 Metoclopramide HCl (Reglan) 10 mg IVP Q6H [facility] Last Admin: 07/14/17 05:14 Dose: Not Given Ondansetron HCl (Zofran Inj) 4 mg IVP Q4 PRN PRN Reason: Nausea/Vomiting Last Admin: 07/14/17 08:09 Dose: 4 mg Pantoprazole Sodium (Protonix Inj) 40 mg IVP Q12H [facility] Last Admin: 07/14/17 00:34 Dose: 40 mg Pneumococcal Polyvalent Vaccine (Pneumovax 23 Vaccine) 0.5 ml IM .ONCE ONE Stop: 07/14/17 14:01 Potassium Chloride (K-Dur 20 Meq Er Tab) 40 meq PO ONCE ONE Stop: 07/14/17 09:01 Sucralfate (Carafate Oral Susp) 1 gm PO ACBHS [facility] Last Admin: 07/14/17 06:30 Dose: 1 gm - Labs Labs: 07/14/17 07:25 07/14/17 07:25 - Constitutional Appears: Non-toxic, No Acute Distress - Eye Exam Eye Exam: Normal appearance - Respiratory Exam Respiratory Exam: absent: Accessory Muscle Use, Respiratory Distress - Cardiovascular Exam Cardiovascular Exam: REGULAR RHYTHM. absent: Tachycardia - GI/Abdominal Exam GI & Abdominal Exam: Soft, Tenderness (epigastric). absent: Distended, Firm, Guarding, Rigid - Neurological Exam Neurological Exam: Alert, Awake, Oriented x3 - Psychiatric Exam Psychiatric exam: Normal Affect Assessment and Plan - Assessment and Plan (Free Text) Assessment: 41F w/ gastric ulcer with hx of Klever-en-Y Plan: restarted pepcid along with PPI will f/u GI series will d/w Dr Mary Meza, PGY3
[2017-07-14] MEDS ORDERED: Potassium Chloride 20 mEq ER Tab PO ONE (09:00)
[2017-07-14 09:33] LABS: MAGNESIUM 1.3 mg/dL (1.6-2.3)
[2017-07-14] MEDS ORDERED: Potassium Chloride 20 MEQ in Dextrose 5%/0.9% NS 1,000 ML IV ONE (10:11)
[2017-07-14] MEDS: Magnesium Sulfate 1 gm in D5W 1 GM/100 ML BAG IVPB SCH ×2 (10:46→12:01)
[2017-07-14] MEDS ORDERED: Pneumococcal 23-Valent Vaccine IM ONE (14:00)
[2017-07-14] MEDS ORDERED: Potassium Chloride 20 mEq ER Tab PO SCH (16:00)
--- NOTE | 2017-07-14 23:06 | CP.PCM.PN ---
Subjective - Date & Time of Evaluation Date of Evaluation: 07/14/17 Time of Evaluation: 19:35 - Subjective Subjective: Pt S&E. Reports one episode of nausea overnight, claims to have vomited but minimal saliva in container. States epigastric pain has resolved. Not being controlled with dilaudid. Pt requesting stronger pain medication. Objective - Vital Signs/Intake and Output Vital Signs (last 24 hours): Temp Pulse Resp BP Pulse Ox 98.5 F 88 18 155/107 H 98 07/14/17 15:14 07/14/17 15:14 07/14/17 15:14 07/14/17 15:14 07/14/17 15:14 Intake and Output: 07/14/17 07/15/17 18:59 06:59 Intake Total 420 800 Balance 420 800 - Medications Medications: Current Medications Famotidine (Pepcid) 20 mg IVP DAILY [facility] Last Admin: 07/14/17 10:10 Dose: 20 mg Heparin Sodium (Porcine) (Heparin) 5,000 units SC Q8 [facility] Last Admin: 07/14/17 21:41 Dose: Not Given Hydromorphone HCl (Dilaudid) 1 mg IVP Q4H PRN PRN Reason: Pain, severe (8-10) Last Admin: 07/14/17 20:13 Dose: 1 mg Potassium Chloride 20 meq/ (Dextrose/Sodium Chloride) 1,010 mls @ 60 mls/hr IV .[id number] ONE Stop: 07/15/17 03:00 Last Admin: 07/14/17 10:36 Dose: 60 mls/hr Metoclopramide HCl (Reglan) 10 mg IVP Q6H [facility] Last Admin: 07/14/17 22:25 Dose: Not Given Ondansetron HCl (Zofran Inj) 4 mg IVP Q4 PRN PRN Reason: Nausea/Vomiting Last Admin: 07/14/17 16:19 Dose: 4 mg Pantoprazole Sodium (Protonix Inj) 40 mg IVP Q12H [facility] Last Admin: 07/14/17 12:49 Dose: 40 mg Sucralfate (Carafate Oral Susp) 1 gm PO ACBHS [facility] Last Admin: 07/14/17 21:40 Dose: 1 gm - Labs Labs: 07/14/17 07:25 07/14/17 07:25 Assessment and Plan (1) Other complications of other bariatric procedure Status: Acute (2) Abdominal pain Status: Acute (3) Nausea Assessment & Plan: electrolyte replacement Status: Acute (4) Vomiting Status: Acute
[2017-07-15 01:32] VITALS: O2SAT 99
[2017-07-15 07:37] LABS: BASO % 0.5 % (0.0-2.0); EOS # 0.1 K/uL (0.0-0.7); EOS % 1.1 % (0.0-4.0); HEMOGLOBIN 12.9 g/dL (11.0-16.0); LYMPH # 2.9 K/uL (1.0-4.3); LYMPH % 39.8 % (20.0-40.0); MEAN CELL VOLUME 88.5 fL (81.0-99.0); MEAN CORPUSCULAR HEMOGLOBIN 29.7 pg (27.0-31.0); MEAN CORPUSCULAR HGB CONC 33.5 g/dL (33.0-37.0); MEAN PLATELET VOLUME 7.8 fL (7.2-11.7); MONO # 0.6 K/uL (0.0-0.8); MONO % 8.7 % (0.0-10.0); NEUT # 3.7 K/uL (1.8-7.0); NEUT % 49.9 % (50.0-75.0); RBC 4.36 Mil/uL (3.80-5.20); RED CELL DISTRIBUTION WIDTH 13.8 % (11.5-14.5); WHITE BLOOD COUNT 7.3 K/uL (4.8-10.8)
--- NOTE | 2017-07-15 07:45 | CP.PCM.PN ---
Subjective - Date & Time of Evaluation Date of Evaluation: 07/15/17 Time of Evaluation: 07:42 - Subjective Subjective: General Surgery: Dr Hernandez Pt S&E. NAEO. No further vomiting. Still with mild epigastric pain, 3/10, but "only dilaudid helps". Tolerating liquid diet at this time. Per nursing pt has been refusing many treatment/diagnostic modalities including the GI series and reglan. Objective - Vital Signs/Intake and Output Vital Signs (last 24 hours): Temp Pulse Resp BP Pulse Ox 98.3 F 63 20 112/73 99 07/14/17 23:10 07/14/17 23:10 07/14/17 23:10 07/14/17 23:10 07/14/17 23:10 Intake and Output: 07/15/17 07/15/17 06:59 18:59 Intake Total 1310 Balance 1310 - Medications Medications: Current Medications Famotidine (Pepcid) 20 mg IVP DAILY [facility] Last Admin: 07/14/17 10:10 Dose: 20 mg Heparin Sodium (Porcine) (Heparin) 5,000 units SC Q8 [facility] Last Admin: 07/14/17 21:41 Dose: Not Given Hydromorphone HCl (Dilaudid) 1 mg IVP Q4H PRN PRN Reason: Pain, severe (8-10) Last Admin: 07/15/17 05:33 Dose: 1 mg Metoclopramide HCl (Reglan) 10 mg IVP Q6H [facility] Last Admin: 07/15/17 05:42 Dose: Not Given Ondansetron HCl (Zofran Inj) 4 mg IVP Q4 PRN PRN Reason: Nausea/Vomiting Last Admin: 07/15/17 05:35 Dose: 4 mg Pantoprazole Sodium (Protonix Inj) 40 mg IVP Q12H [facility] Last Admin: 07/15/17 01:39 Dose: 40 mg Sucralfate (Carafate Oral Susp) 1 gm PO ACBHS [facility] Last Admin: 07/14/17 21:40 Dose: 1 gm - Labs Labs: 07/15/17 07:26 07/14/17 07:25 - Constitutional Appears: Non-toxic, No Acute Distress - ENT Exam ENT Exam: Normal Exam - Respiratory Exam Respiratory Exam: absent: Accessory Muscle Use, Respiratory Distress - Cardiovascular Exam Cardiovascular Exam: REGULAR RHYTHM. absent: Tachycardia - GI/Abdominal Exam GI & Abdominal Exam: Soft, Tenderness (epigastric). absent: Distended, Firm, Guarding, Rigid - Neurological Exam Neurological Exam: Alert, Awake, Oriented x3 Assessment and Plan - Assessment and Plan (Free Text) Assessment: 42F with gastritis/ulcer: resolving Plan: cont with PPI, H2, and carafate further mgmt per GI, as outpatient if needed no surgical intervention needed please re-consult if necessary will d/w Dr Mary Meza, PGY3
[2017-07-15] MEDS: Sucralfate 1 gm/10 ml Oral Susp UD PO SCH (08:02)
[2017-07-15 08:19] LABS: BLOOD UREA NITROGEN 8 mg/dL (7-17); CALCIUM 7.9 mg/dl (8.6-10.4); GFR AFRICAN-AMERICAN > 60; GFR NON-AFRICAN AMERICAN > 60
[2017-07-15 08:51] VITALS: RESP 18; TEMP 98
[2017-07-15] MEDS ORDERED: Potassium Chloride 10 mEq ER Tab PO ONE (10:56)
--- NOTE | 2017-07-15 13:46 | CP.PCM.PN ---
Subjective - Date & Time of Evaluation Date of Evaluation: 07/15/17 Time of Evaluation: 13:46 - Subjective Subjective: PT REQUESTING TO BE D/C HOME TODAY. DISCUSSED WITH DR. NEVAREZ AND PT CLEARED FOR D/C PER DR. NEVAREZ. PT TOLERATED A LIGHT LUNCH OF SALAD AND GRILLED CHICKEN THIS AFTERNOON. NO NAUSEA OR VOMITING. EXAM UNREMARKABLE. ALL GI MEDS RX AND SENT TO PHARMACY. NO HAD LENGTHY DISCUSSION WITH PT AND SIGN OTHER REGARDING D/C, F/U, MEDS AND GI FRIENDLY DIET. ADDRESSED ALL QUESTIONS/ CONCERNS. TO F/U WITH DR. NEVAREZ NEXT WEEK. NO FURTHER ORDERS. Objective - Vital Signs/Intake and Output Vital Signs (last 24 hours): Temp Pulse Resp BP Pulse Ox 98.0 F 76 18 109/74 99 07/15/17 07:30 07/15/17 09:56 07/15/17 07:30 07/15/17 09:56 07/15/17 07:30 Intake and Output: 07/15/17 07/15/17 06:59 18:59 Intake Total 1310 Balance 1310 - Medications Medications: Current Medications Famotidine (Pepcid) 20 mg IVP DAILY [facility] Last Admin: 07/15/17 09:57 Dose: 20 mg Heparin Sodium (Porcine) (Heparin) 5,000 units SC Q8 [facility] Last Admin: 07/14/17 21:41 Dose: Not Given Hydromorphone HCl (Dilaudid) 1 mg IVP Q4H PRN PRN Reason: Pain, severe (8-10) Last Admin: 07/15/17 09:58 Dose: 1 mg Metoclopramide HCl (Reglan) 10 mg IVP Q6H [facility] Last Admin: 07/15/17 11:29 Dose: Not Given Ondansetron HCl (Zofran Inj) 4 mg IVP Q4 PRN PRN Reason: Nausea/Vomiting Last Admin: 07/15/17 09:57 Dose: 4 mg Pantoprazole Sodium (Protonix Inj) 40 mg IVP Q12H [facility] Last Admin: 07/15/17 01:39 Dose: 40 mg Sucralfate (Carafate Oral Susp) 1 gm PO ACBHS [facility] Last Admin: 07/15/17 08:02 Dose: 1 gm - Labs Labs: 07/15/17 07:26 07/15/17 07:26
--- NOTE | 2017-07-15 13:58 | CP.PCM.PN ---
Subjective - Date & Time of Evaluation Date of Evaluation: 07/15/17 Time of Evaluation: 14:00 - Subjective Subjective: Pt seen and evaluated at bedside Objective - Vital Signs/Intake and Output Vital Signs (last 24 hours): Temp Pulse Resp BP Pulse Ox 98.0 F 76 18 109/74 99 07/15/17 07:30 07/15/17 09:56 07/15/17 07:30 07/15/17 09:56 07/15/17 07:30 Intake and Output: 07/15/17 07/15/17 06:59 18:59 Intake Total 1310 Balance 1310 - Medications Medications: Current Medications Famotidine (Pepcid) 20 mg IVP DAILY [facility] Last Admin: 07/15/17 09:57 Dose: 20 mg Heparin Sodium (Porcine) (Heparin) 5,000 units SC Q8 [facility] Last Admin: 07/14/17 21:41 Dose: Not Given Hydromorphone HCl (Dilaudid) 1 mg IVP Q4H PRN PRN Reason: Pain, severe (8-10) Last Admin: 07/15/17 09:58 Dose: 1 mg Metoclopramide HCl (Reglan) 10 mg IVP Q6H [facility] Last Admin: 07/15/17 11:29 Dose: Not Given Ondansetron HCl (Zofran Inj) 4 mg IVP Q4 PRN PRN Reason: Nausea/Vomiting Last Admin: 07/15/17 09:57 Dose: 4 mg Pantoprazole Sodium (Protonix Inj) 40 mg IVP Q12H [facility] Last Admin: 07/15/17 01:39 Dose: 40 mg Sucralfate (Carafate Oral Susp) 1 gm PO ACBHS [facility] Last Admin: 07/15/17 08:02 Dose: 1 gm - Labs Labs: 07/15/17 07:26 07/15/17 07:26 Assessment and Plan (1) Other complications of other bariatric procedure Status: Acute (2) Abdominal pain Status: Acute (3) Nausea Status: Acute (4) Vomiting Status: Acute
[2017-07-15 16:00] VITALS: BP 106/71; PULSE 59
--- NOTE | 2017-07-16 23:18 | CP.PCM.DIS ---
Provider - Provider Date of Admission: 07/11/17 01:13 Attending physician: Darell Marti MD Time Spent in preparation of Discharge (in minutes): 56 Diagnosis - Discharge Diagnosis (1) Other complications of other bariatric procedure Status: Acute (2) Abdominal pain Status: Acute (3) Nausea Status: Acute (4) Vomiting Status: Acute Hospital Course - Lab Results Lab Results: Most Recent Lab Values WBC 7.3 K/uL (4.8-10.8) 07/15/17 07:26 RBC 4.36 Mil/uL (3.80-5.20) 07/15/17 07:26 Hgb 12.9 g/dL (11.0-16.0) 07/15/17 07:26 Hct 38.6 % (34.0-47.0) 07/15/17 07:26 MCV 88.5 fL (81.0-99.0) 07/15/17 07:26 MCH 29.7 pg (27.0-31.0) 07/15/17 07:26 MCHC 33.5 g/dL (33.0-37.0) 07/15/17 07:26 RDW 13.8 % (11.5-14.5) 07/15/17 07:26 Plt Count 307 K/uL (130-400) 07/15/17 07:26 MPV 7.8 fL (7.2-11.7) 07/15/17 07:26 Neut % (Auto) 49.9 % (50.0-75.0) L 07/15/17 07:26 Lymph % (Auto) 39.8 % (20.0-40.0) 07/15/17 07:26 [place] % (Auto) 8.7 % (0.0-10.0) 07/15/17 07:26 Eos % (Auto) 1.1 % (0.0-4.0) 07/15/17 07:26 Baso % (Auto) 0.5 % (0.0-2.0) 07/15/17 07:26 Neut # 3.7 K/uL (1.8-7.0) 07/15/17 07:26 Lymph # 2.9 K/uL (1.0-4.3) 07/15/17 07:26 [place] # 0.6 K/uL (0.0-0.8) 07/15/17 07:26 Eos # 0.1 K/uL (0.0-0.7) 07/15/17 07:26 Baso # 0.0 K/uL (0.0-0.2) 07/15/17 07:26 Neutrophils % (Manual) 89 % (50-75) H 07/10/17 22:16 Lymphocytes % (Manual) 9 % (20-40) L 07/10/17 22:16 Reactive Lymphs % 1 % (0-0) H 07/10/17 22:16 Monocytes % (Manual) 1 % (0-10) 07/10/17 22:16 Platelet Estimate Normal (NORMAL) 07/10/17 22:16 RBC Morphology Normal 07/10/17 22:16 Sodium 132 mmol/L (132-148) 07/15/17 07:26 Potassium 3.5 mmol/L (3.6-5.2) L 07/15/17 07:26 Chloride 100 mmol/L (98-107) 07/15/17 07:26 Carbon Dioxide 28 mmol/L (22-30) 07/15/17 07:26 Anion Gap 7 (10-20) L 07/15/17 07:26 BUN 8 mg/dL (7-17) 07/15/17 07:26 Creatinine 0.6 mg/dL (0.7-1.2) L 07/15/17 07:26 Est GFR ( Amer) > 60 07/15/17 07:26 Est GFR (Non-Af Amer) > 60 07/15/17 07:26 Random Glucose 94 mg/dL (65-105) 07/15/17 07:26 Calcium 7.9 mg/dl (8.6-10.4) L 07/15/17 07:26 Magnesium 1.3 mg/dL (1.6-2.3) L 07/14/17 07:25 Total Bilirubin 1.4 mg/dL (0.2-1.3) H 07/10/17 22:16 AST 25 U/L (14-36) 07/10/17 22:16 ALT 21 U/L (9-52) 07/10/17 22:16 Alkaline Phosphatase 98 U/L (38-126) 07/10/17 22:16 Total Protein 9.2 g/dL (6.3-8.3) H 07/10/17 22:16 Albumin 4.7 g/dL (3.5-5.0) 07/10/17 22: Globulin 4.5 gm/dL (2.2-3.9) H 07/10/17 22: Albumin/Globulin Ratio 1.0 (1.0-2.1) 07/10/17 22: Amylase 53 U/L (30-110) 07/11/17 06:17 Lipase 24 U/L (23-300) 07/11/17 06:17 Urine Color Yellow (YELLOW) 07/10/17 22: Urine Clarity Hazy (Clear) 07/10/17 22: Urine pH 7.0 (5.0-8.0) 07/10/17 22: Ur Specific [place] 1.018 (1.003-1.030) 07/10/17 22: Urine Protein 1+ mg/dL (NEGATIVE) H 07/10/17 22: Urine Glucose (UA) 1+ mg/dL (Normal) 07/10/17 22: Urine Ketones 2+ mg/dL (NEGATIVE) H 07/10/17 22: Urine Blood Negative (NEGATIVE) 07/10/17: Urine Nitrate Negative (NEGATIVE) 07/10/17 22: Urine Bilirubin Negative (NEGATIVE) 07/10/17 22: Urine Urobilinogen 4.0 mg/dL (0.2-1.0) H 07/10/17 22: Ur Leukocyte Esterase Neg [place]/uL (Negative) 07/10/17 22: Urine WBC (Auto) 2 /hpf (0-5) 07/10/17 22: Urine RBC (Auto) 3 /hpf (0-3) 07/10/17 22:29 Ur Squamous Epith Cells 36 /hpf (0-5) H 07/10/17 22:29 Urine Bacteria Occ (<OCC) H 07/10/17 22:29 Urine HCG, Qual Negative (NEGATIVE) 07/13/17 07:47 Urine Opiates Screen Negative (NEGATIVE) 07/11/17 01:29 Urine Methadone Screen Negative (NEGATIVE) 07/11/17 01:29 Ur Barbiturates Screen Negative (NEGATIVE) 07/11/17 01:29 Ur Phencyclidine Scrn Negative (NEGATIVE) 07/11/17 01:29 Ur Amphetamines Screen Negative (NEGATIVE) 07/11/17 01:29 U Benzodiazepines Scrn Negative (NEGATIVE) 07/11/17 01:29 U Oth Cocaine Metabols Negative (NEGATIVE) 07/11/17 01:29 U Cannabinoids Screen Negative (NEGATIVE) 07/11/17 01:29 - Hospital Course Hospital Course: PT REQUESTING TO BE D/C HOME TODAY. PT CLEARED FOR D/C . PT TOLERATED A LIGHT LUNCH OF SALAD AND GRILLED CHICKEN THIS AFTERNOON. NO NAUSEA OR VOMITING. EXAM UNREMARKABLE. ALL GI MEDS RX AND SENT TO PHARMACY. NO HAD LENGTHY DISCUSSION WITH PT AND SIGN OTHER REGARDING D/C, F/U, MEDS AND GI FRIENDLY DIET. ADDRESSED ALL QUESTIONS/CONCERNS. TO F/U WITH DR. MARTI NEXT WEEK. NO FURTHER ORDERS. Discharge Exam - Head Exam Head Exam: ATRAUMATIC, NORMAL INSPECTION, NORMOCEPHALIC - Eye Exam Eye Exam: EOMI, Normal appearance, PERRL Pupil Exam: NORMAL ACCOMODATION, PERRL - ENT Exam ENT Exam: Mucous Membranes Moist - Cardiovascular Exam Cardiovascular Exam: +S1, +S2 - GI/Abdominal Exam GI & Abdominal Exam: Normal Bowel Sounds - Rectal Exam Rectal Exam: Deferred Discharge Plan - Discharge Medications Prescriptions: Sucralfate [Carafate] 1 gm PO BID #60 tab Potassium Chloride [Klor-Con 10] 10 meq PO ONCE #4 ter Famotidine [Pepcid] 20 mg PO DAILY #30 tab Pantoprazole Sodium [Protonix] 40 mg PO Q12 #60 ect Ondansetron [Zofran Tab] 4 mg PO Q8H PRN #60 PRN Reason: Nausea/Vomiting - Follow Up Plan Condition: GUARDED Disposition: HOME/ ROUTINE Instructions: Famotidine (By mouth), Sucralfate (By mouth), Potassium Chloride (By mouth), Ondansetron (By mouth), Pantoprazole (By mouth), Amino Acid Supplement (By mouth), Acute Nausea and Vomiting (DC), Gas and Bloating (GEN), Abdominal Pain (ED) Additional Instructions: FOLLOW UP WITH DR. MARTI IN THE OFFICE WITHIN 5-7 DAYS---CALL FOR APPT TIME. FOLLOW UP WITH DR. BUSTILLOS IN THE OFFICE WITHIN 10-14 DAYS---CALL FOR APPT TIME. CONTINUE HOME MEDICATIONS USUAL. NEW PRESCRIPTION MEDICATIONS HAVE BEEN SENT TO YOUR PHARMACY: PROTONIX 40 MG BY MOUTH TWICE A DAY (TAKE EVERY 12 HOURS); PEPCID 20 MG BY MOUTH ONCE A DAY; CARAFATE 1 GM BY MOUTH TWICE A DAY (TAKE BEFORE BREAKFAST AND AT BEDTIME), ZOFRAN 4MG (UNDER THE TONGUE) EVERY 8 HOURS IF YOU HAVE NAUSEA/VOMITING. YOU HAVE ALSO BEEN PRESCRIBED A POTASSIUM SUPPLEMENT FOR 4 DAYS YOUR POTASSIUM WAS LOW IN THE HOSPITAL. REMEMBER TO EAT HEALTHY AND COMPLY TO YOUR STOMACH FRIENDLY DIET. REMEMBER, EAT SMALL AND FREQUENT MEALS. EAT EVERY 2-3 HOURS RATHER THAN 3 LARGE MEALS A DAY. FOR FURTHER CONCERNS OR QUESTIONS, CONTACT DR. MARTI'S OFFICE. Referrals: Obed Bustillos [Staff Provider] - Darell Marti MD [Staff Provider] - Dereck Hernandez Jr., MD [Staff Provider] -
== END 2017-07-15 16:30 | disposition home or self-care (01) | DRG 189 ==
LOC: C.ER 21:40 → C.6T 07-11 01:13
PROVIDERS: ADMIT Internal Medicine; ATTEND Internal Medicine
PROC: 0DJ08ZZ Inspection of Upper Intestinal Tract, Via Natural or Artificial Opening Endoscopic (ICD-10-PCS; principal; 2017-07-13 09:07)
DX: K95.89 Other complications of other bariatric procedure (principal); E78.00 Pure hypercholesterolemia, unspecified; K25.3 Acute gastric ulcer without hemorrhage or perforation; K21.0 Gastro-esophageal reflux disease with esophagitis; F32.9 Major depressive disorder, single episode, unspecified; F41.9 Anxiety disorder, unspecified; G47.30 Sleep apnea, unspecified; G43.909 Migraine, unspecified, not intractable, without status migrainosus; Z87.891 Personal history of nicotine dependence; Y84.8 Other medical procedures as the cause of abnormal reaction of the patient, or of later complication, without mention of misadventure at the time of the procedure; R11.2 Nausea with vomiting, unspecified; Z90.49 Acquired absence of other specified parts of digestive tract